=== PATIENT | female | born 1990 | race Caucasian/White ===

== ENCOUNTER 2025-01-04 11:22 | Emergency (ER) | payer OTHER ==
[2025-01-04 11:33] VITALS: BP 115/81; PULSE 82; RESP 18; TEMP 98; BMI 26.4
[2025-01-04] MEDS ORDERED: METHOCARBAMOL 500 MG TABLET ONE (12:34)
[2025-01-04] MEDS ORDERED: KETOROLAC TROMETHAMINE 30 MG/1 ML VIAL ONE (12:34)
[2025-01-04] MEDS: METHOCARBAMOL 500 MG TABLET PO ONE (12:51)
[2025-01-04] MEDS: KETOROLAC TROMETHAMINE 30 MG/1 ML VIAL IM ONE (12:52)
[2025-01-04 13:10] LABS: EPI CELLS 6 /uL (0-25.1); HCG,QUALITATIVE URINE Negative; HYALINE CASTS 0 /uL (0-3.1); URINE APPEARANCE CLEAR; URINE BACTERIA 5 /uL (0-1359); URINE BILIRUBIN NEGATIVE (NEGATIVE); URINE COLOR DK YELLOW; URINE GLUCOSE (UA) NEGATIVE (NEGATIVE); URINE KETONE NEGATIVE (NEGATIVE); URINE LEUK ESTERASE NEGATIVE (NEGATIVE); URINE NITRITE NEGATIVE (NEGATIVE); URINE PROTEIN NEGATIVE (NEGATIVE); URINE RBC 19 /uL (0-23.9); URINE UROBILINOGEN 1.0 mg/dL (0.2-1.0); URINE WBC 1 /uL (0-25.8)
== END 2025-01-04 16:56 | disposition home or self-care (01) ==
LOC: JERFT 11:22
PROC: 3E0233Z Introduction of Anti-inflammatory into Muscle, Percutaneous Approach (ICD-10-PCS; principal; 2025-01-04)
DX: M51.26 Other intervertebral disc displacement, lumbar region (principal); M54.50 Low back pain, unspecified
CPT/HCPCS: 72131-TC; 81003; 84703; 87086; 99284-25